=== PATIENT | male | born 1980 | race Two or more races ===

== ENCOUNTER 2020-11-21 05:23 | Emergency (ER) | payer BC ==
[~2020-11-21] VITALS: Ht 175.3 cm; Wt 92.4 kg
[2020-11-21] MEDS ORDERED: PRED20TA PO (05:52)
[2020-11-21] MEDS ORDERED: PSEU120T9 PO (05:52)
--- NOTE | 2020-11-21 05:53 | PHYS DOC ---
Adult General Chief Complaint Chief Complaint: RINGING IN EARS [facility] HPI Patient is a 40 year old male who denies any significant past history presents emergency department for new onset of right-sided ear pain. Patient states over the last 2 weeks has been having worsening intermittent sensation of fullness in the right ear complicated by decreased hearing and tinnitus in the right ear. Patient states that 2 weeks ago he was started on antibiotic which she completed a week and a half of however states that since he discontinued it feels like his symptoms have gotten worse. Patient notes that he been using drops in the ear to help clean it out. Denies any nausea, vomiting, fever, chills, throat swelling, vision changes Review of Systems Review of Systems Constitutional: Denies fever or chills [] Eyes: Denies change in visual acuity, redness, or eye pain [] HENT: Denies nasal congestion or sore throat [] Respiratory: Denies cough or shortness of breath [] Cardiovascular: No additional information not addressed in HPI [] GI: Denies abdominal pain, nausea, vomiting, bloody stools or diarrhea [] : Denies dysuria or hematuria [] Musculoskeletal: Denies back pain or joint pain [] Integument: Denies rash or skin lesions [] Neurologic: Denies headache, focal weakness or sensory changes [] Endocrine: Denies polyuria or polydipsia [] All other systems were reviewed and found to be within normal limits, except as documented in this note. Allergies Allergies Allergies Coded Allergies Type Severity Reaction Last Updated Verified No Known Drug Allergies 11/21/20 No Physical Exam Physical Exam Constitutional: Well developed, well nourished, no acute distress, non-toxic appearance. [] HENT: Normocephalic, atraumatic, bilateral external ears normal, oropharynx moist, no oral exudates, nose normal. [] Eyes: PERRLA, EOMI, conjunctiva normal, no discharge. [] Neck: Normal range of motion, no tenderness, supple, no stridor. [] Cardiovascular:Heart rate regular rhythm, no murmur [] Lungs & Thorax: Bilateral breath sounds clear to auscultation [] Abdomen: Bowel sounds normal, soft, no tenderness, no masses, no pulsatile masses. [] Skin: Warm, dry, no erythema, no rash. [] Back: No tenderness, no CVA tenderness. [] Extremities: No tenderness, no cyanosis, no clubbing, ROM intact, no edema. [] Neurologic: Alert and oriented X 3, normal motor function, normal sensory function, no focal deficits noted. [] Psychologic: Affect normal, judgement normal, mood normal. [] EKG EKG [] Radiology/Procedures Radiology/Procedures [] Course & Med Decision Making Course & Med Decision Making Pertinent Labs and Imaging studies reviewed. (See chart for details) 40-year-old male presenting with right-sided tenderness and earache with a right-sided tympanic membrane that does have a small amount of bulging but no significant erythema and has a good reflection making otitis media extremely unl ikely. At this time I suspect the patient is having a mild viral infection or labyrinthitis would most benefit from steroids and Sudafed. Will provide this and plan for discharge home Dragon Disclaimer Dragon Disclaimer This electronic medical record was generated, in whole or in part, using a voice recognition dictation system. Departure Departure Impression: Primary Impression: Acute labyrinthitis Disposition: 01 DC HOME SELF CARE/HOMELESS Condition: GOOD Referrals: CHRISTINE CHAMBERLAIN MD Patient Instructions: Otitis Media, Adult Additional Instructions: EMERGENCY DEPARTMENT GENERAL DISCHARGE INSTRUCTIONS Thank you for coming to [facility] Emergency Department (ED) today and trusting us with you care. We trust that you had a positive experience in our Emergency Department. If you wish to speak to the department management, you may call the Director at [phone]. YOUR FOLLOW UP INSTRUCTIONS ARE FOLLOWS: 1. Do you have a private Doctor? If you do not have a private doctor, please ask for a resource list of physicians or clinics that may be able to assist you with follow up care. 2. The Emergency Physicain has interpreted your x-rays. The X-Ray specialist will also review them. If there is a change in the findings, you will be notified in 48 hours when at all possible. 3. A lab test or culture has been done, your results will be reviewed and you will be notified if you need a change in treatment. ADDITIONAL INSTRUCTIONS AND INFORMATION: 1. Your care today has been supervised by a physician who is specially trained in emergency care. Many problems require more than one evaluation for a complete diagnosis and treatment. We recommend that you schedule your follow up appointment as recommended to ensure complete treatment of you illness or injury. If you are unable to obtain follow up care and continue to have a problem, or if your condition worsens, we recommend that you return to the ED. 2. We are not able to safely determine your condition over the phone nor are we able to give sound medical advice over the phone. For these safety reasons, if you call for medical advice we will ask you to come to the ED for further evaluation. 3. If you have any questions regarding these discharge instructions please call the ED at [phone]. SAFETY INFORMATION: In the interest of safety, wellness, and injury prevention; we encourage you to wear your sealbelt, if you smoke; quite smoking, and we encourage family to use a protective helmet for bicycling and other sporting events that present an increased risk for head injury. IF YOUR SYMPTOMS WORSEN OR NEW SYMPTOMS DEVELOP, OR YOU HAVE CONCERNS ABOUT YOUR CONDITION; OR IF YOUR CONDITION WORSENS WHILE YOU ARE WAITING FOR YOUR FOLLOW UP APPOINTMENT; EITHER CONTACT YOUR PRIMARY CARE DOCTOR, THE PHYSICIAN WHOSE NAME AND NUMBER YOU WERE GIVEN, OR RETURN TO THE ED IMMEDIATELY. Scripts Prednisone (PREDNISONE) 20 Mg Tablet 1 TAB PO DAILY, #5 TAB Prov: ALEXANDRE GENAO MD 11/21/20 Pseudoephedrine Hcl (SUDAFED 12-HOUR) 120 Mg Tablet.er 1 TAB PO BID, #20 TAB Prov: ALEXANDRE GENAO MD 11/21/20 ALEXANDRE GENAO MD Nov 21, 2020 05:53
[2020-11-21] MEDS ORDERED: IBUPROFEN 400 MG TABLET. PO ONE (06:00)
[2020-11-21] MEDS ORDERED: predniSONE 20 MG TABLET PO ONE (06:00)
[2020-11-21] MEDS ORDERED: PSEUDOEPHEDRINE ER 120 MG TABLET.ER. PO ONE (06:00)
[2020-11-21 06:08] VITALS: BP 135/80
== END 2020-11-21 06:08 | disposition home or self-care (01) ==
LOC: ER 05:23
DX: H83.01 Labyrinthitis, right ear (principal)
CPT/HCPCS: 99284; J7512